=== PATIENT | male | born 1985 | race Caucasian/White ===

== ENCOUNTER 2019-11-07 17:35 | Emergency (ER) | payer BC, OTHER ==
[~2019-11-07] VITALS: Ht 175.3 cm; Wt 101.6 kg
[~2019-11-07 17:35] MED LIST: ACET-5629 PO; HUMERA; PRED20TA5
[2019-11-07 18:23] VITALS: BP 117/53
--- NOTE | 2019-11-07 18:27 | NUR ---
PT PLACED IN LOBBY, AMBULATED
--- NOTE | 2019-11-07 19:55 | NUR ---
pt ambulated to bed 6
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
[2019-11-07] MEDS ORDERED: MORPHINE SULFATE 4 MG/ML SYR IM ONE (20:40)
--- NOTE | 2019-11-07 20:56 | NUR ---
PT STATES DECREASE IN PAIN 11/27
[2019-11-07 20:57] VITALS: BP 117/53
--- NOTE | 2019-11-07 20:57 | NUR ---
Patient discharged with v/s stable. Written and verbal after care instructions given and explained. Patient verbalized understanding. Ambulatory with steady gait. All questions addressed prior to discharge. Advised to follow up with PMD.
== END 2019-11-07 20:57 | disposition home or self-care (01) ==
LOC: MED 17:35
DX: G89.29 Other chronic pain (principal); M79.10 Myalgia, unspecified site; Z79.899 Other long term (current) drug therapy; Z88.8 Allergy status to other drugs, medicaments and biological substances
CPT/HCPCS: 96372; 99283; J2270

== ENCOUNTER 2020-12-07 16:54 | Inpatient (IN) | payer BC, OTHER, SELFPAY ==
[~2020-12-07] VITALS: Ht 180.3 cm; Wt 118.2 kg
[2020-12-07 16:54] VITALS: BP 116/76
--- NOTE | 2020-12-07 16:54 | NUR ---
Patient BIBA ALS accompanied by [facility], transferred to bed 1. Dr. Mccrary, RT and RN are evaluating the patient at bedside.
[2020-12-07 17:35] LABS: HEMATOCRIT 38.5 % (36-52); HEMOGLOBIN 12.6 g/dL (12.0-18.0); MEAN CORPUSCULAR HEMOGLOBIN 29 pg (27-31); MEAN CORPUSCULAR HGB CONC 33 g/dL (33-37); MEAN CORPUSCULAR VOLUME 89.1 fL (80-94); PLATELET COUNT (AUTO) 402 K/uL (140-450); RED BLOOD CELL COUNT(AUTO) 4.32 MIL/uL (4.20-6.10); RED CELL DISTRIBUTION WIDTH 14.8 % (11.6-13.7); WHITE BLOOD COUNT (AUTO) 20.4 K/uL (4.8-10.8)
[2020-12-07 17:55] LABS: ALBUMIN 3.2 g/dL (3.4-5.0); ANION GAP 15.5 (8-16); ASPARTATE AMINOTRANSFERASE 17 U/L (15-37); CHLORIDE 102 mmol/L (98-107); CREATININE 1.1 mg/dL (0.6-1.3); GFR ARICAN-AMERICAN 97 mL/min (>90); GLUCOSE 159 mg/dL (74-106); POTASSIUM 3.5 mmol/L (3.5-5.1); SODIUM SERUM 139 mmol/L (136-145); TOTAL BILIRUBIN 0.2 mg/dL (0.0-1.0); UREA NITROGEN, BLOOD 10 mg/dL (7-18)
[2020-12-07 17:58] LABS: ACETAMINOPHEN < 0.5 ug/ml (10-30); SALICYLATE < 2.8 mg/dL (2.8-20.0)
--- NOTE | 2020-12-07 18:08 | NUR ---
EKG PERFORMED AT BEDSIDE. EKG READS SINUS RHYTHM @ 95
[2020-12-07 18:22] LABS: LYMPHOCYTES % (MANUAL) 14 % (20-46); MONOCYTES % (MANUAL) 1 % (5-12)
--- NOTE | 2020-12-07 19:06 | NUR ---
Poison Control called, spoke with Hamzah ID # [id number], Case # [id number] with the ff recommendations: 1: Repeat Acetominophen level in 2 hours, make sure it's undetectable 2: Repeat liver fxn test 3. May give Narcan multiple doses in the 1 st hour followed by Narcan drip if necessary for respiratory depression 4. Keep pt on tank cleaner. Monitor for long QTc, QT, if prolonhed, optimize on electrolytes 5. Monitor pt for at least 24 hours. 6. 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
--- NOTE | 2020-12-07 19:12 | NUR ---
Hand-off report given to Palma DIAMOND for continuation of nursing care
--- NOTE | 2020-12-07 19:13 | NUR ---
TO CT VIA [facility]
--- NOTE | 2020-12-07 19:32 | NUR ---
CRITICAL LAB: LACTIC ACID 2.1. DR. CORTES MADE AWARE.
[2020-12-07] MEDS ORDERED: NACL 0.9% 1,000 ML IV ONE (19:40)
--- NOTE | 2020-12-07 20:05 | NUR ---
MIRANDA SWAB COMPLETED AND HANDED TO AUTOMATION/CONTROLS MANAGER
[2020-12-07] MEDS ORDERED: ZOLPIDEM 5 MG TAB PO PRN (20:20)
[2020-12-07] MEDS ORDERED: DOCUSATE SODIUM 100 MG GELCAP PO PRN (20:20)
[2020-12-07] MEDS ORDERED: POTASSIUM CHLORIDE 10 MEQ TABER PO PRN (20:20)
[2020-12-07] MEDS ORDERED: guaiFENesin DM 200/20 MG-10 ML 10 ML UDC PO PRN (20:20)
[2020-12-07] MEDS ORDERED: ONDANSETRON 4 MG/2 ML VIAL IM/IVP PRN (20:20)
[2020-12-07] MEDS ORDERED: ACETAMINOPHEN 325 MG TAB PO PRN (20:20)
[2020-12-07] MEDS ORDERED: methylPREDNISolone SS 125 MG/2 ML VIAL IVP SCH (20:25)
[2020-12-07 21:07] LABS: PROTHROMBIN TIME 9.8 secs (10.8-13.4)
[2020-12-07 21:20] LABS: CHOL/HDL RATIO 6.1 (1-4.5); FREE T4 (FREE THYROXINE) 0.83 ng/dL (0.76-1.46); MAGNESIUM 2.2 mg/dL (1.8-2.4); PHOSPHORUS 4.7 mg/dL (2.5-4.9); THYROID STIMULATING HORMONE 2.55 uIU/mL (0.34-3.74)
--- NOTE | 2020-12-07 22:00 | NUR ---
RESTING WITH EYES CLOSED AND SNORING RESPIRATIONS. AWAKENS WITH TACTILE STIMULATION.
[2020-12-07] MEDS ORDERED: cefTRIAXone 1,000 MG VIAL ONE (22:37)
--- NOTE | 2020-12-07 23:30 | NUR ---
Note reina in EDM - 12/08/20 at 0036 by SHIRA IS VOIDING WELL PER URSTEPHANIE. MODAWSON WHEN MOVING. STATES "YES" WHEN ASKED IF HAVING PAIN. MEDICATED ORDERED. FAMILY HAS CALLED. UPDATE GIVEN.
--- NOTE | 2020-12-08 02:00 | NUR ---
RESTING WITH EYES CLOSED, RESPONDS TO TACTILE STIMULI.
--- NOTE | 2020-12-08 04:00 | NUR ---
ASSISTED WITH POSITIONING FOR COMFORT. HAS NOT VOIDED.
--- NOTE | 2020-12-08 06:00 | NUR ---
Patient appears to be resting comfortably in bed. Vital Signs within normal limits. Respirations even and unlabored.
[2020-12-08 07:02] LABS: BASOPHILS % (AUTO) 0.2 % (0.0-2.0); HEMATOCRIT 36.9 % (36-52); HEMOGLOBIN 12.3 g/dL (12.0-18.0); LYMPHOCYTES # (AUTO) 1.6 K/uL (2.0-11.5); LYMPHOCYTES % (AUTO) 10.7 % (20.5-51.1); MEAN CORPUSCULAR HEMOGLOBIN 30 pg (27-31); MEAN CORPUSCULAR HGB CONC 33 g/dL (33-37); MEAN CORPUSCULAR VOLUME 89.2 fL (80-94); MONOCYTES # (AUTO) 0.1 K/uL (0.8-1.0); MONOCYTES % (AUTO) 0.7 % (1.7-9.3); NEUTROPHILS # (AUTO) 13.2 K/uL (1.8-7.7); NEUTROPHILS % (AUTO) 88.4 % (42.2-75.2); PLATELET COUNT (AUTO) 421 K/uL (140-450); RED BLOOD CELL COUNT(AUTO) 4.14 MIL/uL (4.20-6.10); RED CELL DISTRIBUTION WIDTH 14.8 % (11.6-13.7)
[2020-12-08 07:47] LABS: ANION GAP 12.3 (8-16); CREATININE 1.2 mg/dL (0.6-1.3); POTASSIUM 5.3 mmol/L (3.5-5.1)
--- NOTE | 2020-12-08 07:53 | NUR ---
REPORT RECEIVED FROM DARA HANSON. PT SLEEPING COMFORTABLY AT THIS TIME.
[2020-12-08] MEDS ORDERED: PANTOPRAZOLE 40 MG TABEC PO SCH (09:00)
[2020-12-08] MEDS ORDERED: methylPREDNISolone SS 125 MG/2 ML VIAL IVP SCH (09:00)
--- NOTE | 2020-12-08 09:01 | NUR ---
RX BOTTLES GIVEN TO PHARAMCY TO HOLD WHILE PT ADMITTED.
--- NOTE | 2020-12-08 09:41 | NUR ---
TRIED CALLING DARA WEEKS TO GIVE REPORT. NO ANSWER. WILL TRY AGAIN.
--- NOTE | 2020-12-08 09:44 | NUR ---
REPORT GIVEN TO DARA WEEKS. PT WILL GO TO ROOM 107-A.
[2020-12-08 09:48] VITALS: BP 112/69
--- NOTE | 2020-12-08 09:48 | NUR ---
Note reina in EDM - 12/08/20 at 1031 by [facility] Patient will be admitted to care of DR CLARK. Admited to MED SURG. Will go to room 107A. Belongings list completed. Report to DARA WEEKS.
--- NOTE | 2020-12-08 10:30 | NUR ---
RECEIVED THIS 35 YEAR OLD MALE PER GUADALUPE FROM ER, AWAKE,ALERT, ORIENTED X4, BREATHING SPONTANEOUSLY WITH 02 AT 2L/MIN VIA NC, [id number]%, WITH IV CANNULA G20 AT RT HAND ON SALINE, SAFETY MEASURES IN PLACE AND CONTINUE MONITOR.ADMITTED A CASE OF OPIATES OVERDOSE UNDER THE CARE OF DR. CLARK, ATTENDING PHYSICIAN.
--- NOTE | 2020-12-08 10:31 | NUR ---
Patient will be admitted to care of DR CLARK. Admited to MED SURG. Will go to room 120A. Belongings list completed. Report to DARA WEEKS.
--- NOTE | 2020-12-08 12:03 | NUR ---
VITAL SIGNS TAKEN AND RECORDED, STABLE
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
--- NOTE | 2020-12-08 13:06 | NUR ---
LUNCH SERVED, REFUSED TO EAT AND ASKING FOR TURKEY SANDWICH, FNS CONTACTED
--- NOTE | 2020-12-08 13:54 | NUR ---
TURKEY SANDWICH SERVED, CONSUMED 100%.
--- NOTE | 2020-12-08 15:07 | NUR ---
PATIENT WANTED TO GO HOME AND LEAVE THE HOSPITAL AGAINST MEDICAL ADVICE, EXPLAINED THE POTENTIAL HARM AND RISK BUT STILL INSISTED TO HOME, ACCORDING TO HIM HE IS DOING GOOD. DR. EDUARDO CLARK INFORMED THRU TEXT MESSAGE, AWAITING REPLY
--- NOTE | 2020-12-08 15:23 | NUR ---
DR. CLARK REPLIED AND MADE AWARE. PATIENT SIGNED THE FORM FOR LEAVE AGAINST MEDICAL ADVICE. IV CANNULA REMOVED AND DRESSING APPLIED, NO BLEEDING NOTED. FAMILY NOTIFIED TO PICK HIM UP.
--- NOTE | 2020-12-08 15:30 | NUR ---
HOME MEDICATION, METHADONE 3 TABS TAKEN FROM THE PHARMACY AND GIVEN TO THE PATIENT.
--- NOTE | 2020-12-08 15:45 | NUR ---
LEAVE AGAINST MEDICAL ADVICE, ACCOMPANIED TO HOSPITAL LOBBY PER WHEELCHAIR IN STABLE CONDITION BREATHING SPONTANEOUSLY AT ROOM AIR. FAMILY PICK HIM UP.
[2020-12-09 08:07] LABS: T4 (THYROXINE) 6.2 ug/dL (4.5-12.0)
[2020-12-09] MEDS ORDERED: methylPREDNISolone SS 40 MG/ML VIAL IVP SCH (09:00)
== END 2020-12-08 15:40 | disposition left against medical advice (07) | DRG 871 ==
LOC: MED 16:54 → MTU 19:40
PROVIDERS: ADMIT Family Medicine; ATTEND Family Medicine
DX: A41.9 Sepsis, unspecified organism (principal); G92 Toxic encephalopathy; J15.20 Pneumonia due to staphylococcus, unspecified; K50.90 Crohn's disease, unspecified, without complications; E44.0 Moderate protein-calorie malnutrition; T40.2X1A Poisoning by other opioids, accidental (unintentional), initial encounter; G89.29 Other chronic pain; D72.829 Elevated white blood cell count, unspecified; F11.10 Opioid abuse, uncomplicated; K52.9 Noninfective gastroenteritis and colitis, unspecified; N20.0 Calculus of kidney; Z20.822 Contact with and (suspected) exposure to COVID-19; Z53.29 Procedure and treatment not carried out because of patient's decision for other reasons; Z88.8 Allergy status to other drugs, medicaments and biological substances; Y92.89 Other specified places as the place of occurrence of the external cause; Z68.36 Body mass index [BMI] 36.0-36.9, adult
CPT/HCPCS: 36415; 71045; 80048; 80053; 82150; 83036; 83605; 83690; 83735; 83880; 84100; 84436; 84439; 84443; 84479; 84484; 85025; 85610; 85730; 87040; 93005; 96365; 99291; G0480; G0482; J0696; J2930; J7060